=== PATIENT | female | born 1970 | race Asian ===

== ENCOUNTER 2017-11-10 09:00 | Emergency (ER) | payer OTHER ==
[~2017-11-10] VITALS: Ht 152.4 cm; Wt 50.0 kg
[2017-11-10 09:07] VITALS: BP 115/66; PULSE 67; RESP 16; TEMP 98.6; O2SAT 99
--- NOTE | 2017-11-10 09:26 | PD ---
HPI Chief Complaint: Bite or Sting Time Seen by Provider: 09:14 Travel History International Travel<30 days: No Contact w/Intl Traveler<30days: No Traveled to known affect area: No History of Present Illness HPI 47-year-old female presents to the emergency room for evaluation of dog bite to her right upper arm that occurred just prior to arrival. Patient was trying to espinosa a stray dog out of her backyard when he attacked her arm and then took off running. Patient reports moderate pain in the right upper arm with associated tingling down her hand. Unknown rabies status by the dog. Unknown last tetanus. No chronic medical conditions or daily medications. PFSH Social History Tobacco Use: No Allergies-Medications (Allergen,Severity, Reaction): Coded Allergies: No Known Allergies (Unverified , 11/10/17) Review of Systems Except as stated in HPI: all other systems reviewed are Neg Physical Exam Narrative GENERAL: Well-nourished, well-developed female in no acute distress. Afebrile. Ambulatory. SKIN: Focused skin assessment warm/dry. There is a superficial 2 mm abrasion to the right posterior upper arm. There is surrounding ecchymosis and erythema. Mild induration. No drainage. HEAD: Normocephalic. EYES: No scleral icterus. No injection or drainage. NECK: Supple, trachea midline. No JVD or lymphadenopathy. CARDIOVASCULAR: Regular rate and rhythm without murmurs, gallops, or rubs. RESPIRATORY: Breath sounds equal bilaterally. No accessory muscle use. MUSCULOSKELETAL: No cyanosis. Mild edema surrounding the wound. Full range of motion of the right upper extremity. 2+ radial pulse. Radial, ulnar, median nerves intact. Data Data Last Documented VS Vital Signs Date Time Temp Pulse Resp B/P (MAP) Pulse Ox O2 Delivery O2 Flow Rate FiO2 11/10/17 09:07 98.6 67 16 115/66 (82) 99 Orders Orders Tetanus/Diphtheria Tox Adult (Tetanus/Di (11/10/17 09:30) Rabies Vaccine Chick Emb Inj (Rabavert I (11/10/17 09:30) Rabies Immune Globulin Inj (Hyperrab S/D (11/10/17 09:30) Amoxicil-Clavulanate (Augmentin) (11/10/17 09:30) MDM Medical Decision Making Medical Screen Exam Complete: Yes Emergency Medical Condition: Yes Medical Record Reviewed: Yes Differential Diagnosis Dog bite, rabies prophylaxis, tetanus prophylaxis, wound infection Narrative Course 47-year-old female presents to the emergency room for evaluation of dog bite to the right upper arm that occurred just prior to arrival. Patient was bit by an unknown dog and it ran away. Tetanus was updated. Patient was given rabies vaccination and immunoglobulin in the emergency room. Wound was thoroughly cleansed and some of the immunoglobulin was injected around the wound. It is superficial with no indication for repair. Patient given first dose of Augmentin in the emergency room. Discharged with prescription for the same. Told to follow-up with health department or return for worsening symptoms. She understands and agrees to plan. Diagnosis Primary Impression: Dog bite of right upper arm Qualified Codes: S41.151A - Open bite of right upper arm, initial encounter; W54.0XXA - Bitten by dog, initial encounter Referrals: Primary Care Physician [facility]. Patient Instructions: Animal Bite (ED), General Instructions Additional Instructions: Rest and drink plenty fluids. Take Augmentin as directed, until gone. You received your first dose of rabies vaccination today (day 0). Your next dose will be: Day 3: Day 7: Day 14: Go to the health department for further rabies vaccinations. If about the department is closed, return here. Follow-up with her primary care physician. Return to the emergency room for worsening symptoms. Med/Other Pt SpecificInfo: Prescription(s) given Disposition: 01 DISCHARGE HOME Condition: Stable Eboni Jamison Nov 10, 2017 09:26
[2017-11-10] MEDS ORDERED: RABIES VACCINE CHICK EMB INJ 2.5 UNITS/ML SYR IM ONE (09:30)
[2017-11-10] MEDS ORDERED: RABIES IMMUNE GLOBULIN INJ 300 UNITS/2 ML VIAL IM ONE (09:30)
[2017-11-10] MEDS ORDERED: AMOXICILLIN/CLAVULANATE K 875 MG TAB PO ONE (09:30)
[2017-11-10] MEDS ORDERED: TETANUS/DIPHTHERIA TOXOID ADULT 0.5 ML VIAL IM ONE (09:30)
[2017-11-10] MEDS ORDERED: AUGM875T3 PO (10:20)
== END 2017-11-10 10:44 | disposition home or self-care (01) ==
LOC: NEPK 09:00
DX: S41.151A Open bite of right upper arm, initial encounter (principal); R20.2 Paresthesia of skin; Z23 Encounter for immunization; W54.0XXA Bitten by dog, initial encounter
CPT/HCPCS: 90375; 90471; 90472; 90675; 90714; 96372